=== PATIENT | female | born 1965 | race Hispanic/Latino ===

== ENCOUNTER 2020-12-31 12:07 | Inpatient (IN) | payer BC, SELFPAY ==
[2020-12-31 12:59] LABS: #Eosinphils 0.1 10x3/uL (0.0-0.5); #Monocytes 0.3 10x3/uL (0.0-1.1); #Neutrophils 3.1 10x3/uL (1.5-8.4); %Basophils 0.5 % (0.0-2.0); %Eosinophils 3.3 % (0.0-6.0); %Lymphocytes 15.7 % (18.0-47.0); %Monocytes 7.5 % (0.0-10.0); %Neutrophils 72.3 % (40.0-75.0); Hemoglobin 12.9 g/dL (12.0-15.5); Mean Corpuscular HGB CONC 33.8 g/dL (32.0-36.0); Mean Corpuscular Hemoglobin 29.7 pg (27.0-33.0); Mean Corpuscular Volume 87.8 fl (81.6-98.3); Mean Platelet Volume 10.9 fl (7.4-10.4); Platelet Count 201 10x3/uL (150-450); RBC Distribution Width 14.4 % (11.5-14.5); Red Blood Cell (RBC) Count 4.35 10x6/uL (3.90-5.03); White Blood Cell (WBC) Count 4.3 10x3/uL (3.5-10.5)
[2020-12-31 13:16] LABS: ALT (SGPT) 186 U/L (8-55); AST (SGOT) 104 U/L (5-34); Albumin 3.9 g/dL (3.5-5.0); Alkaline Phosphatase 139 U/L (40-110); Anion Gap 15 mmol/L (10-20); BUN (Urea Nitrogen) 20 mg/dL (9.8-20.1); Bilirubin, Total 0.5 mg/dL (0.2-1.2); Calc. Creatinine Clearance 0 mL/min (70-130); Calcium 9.1 mg/dL (7.8-10.44); Carbon Dioxide 23 mmol/L (22-29); Chloride 103 mmol/L (98-107); Globulin 3.1 g/dL (2.4-3.5); Glucose 486 mg/dL (70-105); Magnesium 1.9 mg/dL (1.6-2.6); Phosphorus 3.1 mg/dL (2.3-4.7); Potassium 3.9 mmol/L (3.5-5.1); Sodium 137 mmol/L (136-145)
[2020-12-31 13:19] LABS: Bilirubin Neg (Negative); Blood, Urine Negative (Negative); Clarity Clear (Clear); Glucose, Urine (Dipstick) >=1000 mg/dL (Negative); Ketone, Urine 50 mg/dL (Negative); Leukocyte 100 (Negative); Nitrite Negative (Negative); Protein, Urine (Dipstick) Negative (Neg-Trace); Specific Gravity, Urine 1.015 (1.002-1.036); Urobilinogen Normal mg/dL (Less than 2)
[2020-12-31 13:26] LABS: Actual Bicarbonate (HCO3v) 22 mEq/L (22-28); Base Excess -4.1 mEq/L (-2.0 to +3.0); Chloride (VBG) 99 mmol/L (98-106); Hemoglobin (Hb) 13.7 g/dL (11.7-16.0); Potassium (VBG) 3.67 mmol/L (3.70-5.30); Puncture Site Other Site; Sodium 136.8 mmol/L (133-146); pH (venous) 7.31 (7.32-7.43)
[2020-12-31 13:27] LABS: RBC/HPF 0-3 HPF (0-3); WBC/HPF 0-3 HPF (0-3)
[2020-12-31 13:28] LABS: Bacteria/HPF Rare-Few HPF (None Seen); Squamous Epithelial 0-3 HPF (0-3)
[2020-12-31 13:29] LABS: Yeast-Budding 1+ HPF (None Seen)
[2020-12-31] MEDS ORDERED: Insulin Regular 300 UNITS/3 ML VIAL ONE (14:00)
[2020-12-31] MEDS ORDERED: Dextrose 5% in Water 1,000 ML IV PRN (15:22)
[2020-12-31] MEDS ORDERED: Dextrose 50% Abboject 50 ML SYRINGE SLOW IVP PRN (15:22)
[2020-12-31] MEDS ORDERED: HumaLOG 300 UNITS/3 ML VIAL SC PRN (15:22)
[2020-12-31] MEDS ORDERED: Sodium Chloride 0.9% 1,000 ML IV SCH (15:30)
[2020-12-31] MEDS ORDERED: Acetaminophen 325 MG TAB PO PRN (15:31)
[2020-12-31] MEDS ORDERED: Ondansetron PF 4 MG/2 ML Vial IVP PRN (15:31)
[2020-12-31] MEDS ORDERED: Ondansetron ODT 4 MG TAB PO PRN (15:31)
[2020-12-31] MEDS ORDERED: Fluconazole 100 MG TAB PO SCH (16:30)
[2020-12-31 17:21] VITALS: BMI 35.8
[2020-12-31] MEDS ORDERED: Prevnar 13-Val Conj/PF 0.5 ML SYRINGE IM ONE (17:45)
[2020-12-31] MEDS: HumaLOG 300 UNITS/3 ML VIAL SC PRN (17:58)
[2020-12-31] MEDS: Famotidine 20 MG TAB PO SCH (20:52)
[2021-01-01 01:00] LABS: SARS-CoV-2 PCR by NAA Not Detected (NotDetected)
[2021-01-01 04:30] LABS: #Eosinphils 0.1 10x3/uL (0.0-0.5); #Monocytes 0.4 10x3/uL (0.0-1.1); #Neutrophils 2.5 10x3/uL (1.5-8.4); %Basophils 0.3 % (0.0-2.0); %Eosinophils 3.3 % (0.0-6.0); %Lymphocytes 22.9 % (18.0-47.0); %Monocytes 9.4 % (0.0-10.0); %Neutrophils 63.6 % (40.0-75.0); Hemoglobin 11.4 g/dL (12.0-15.5); Mean Corpuscular HGB CONC 33.6 g/dL (32.0-36.0); Mean Corpuscular Hemoglobin 29.1 pg (27.0-33.0); Mean Corpuscular Volume 86.5 fl (81.6-98.3); Mean Platelet Volume 10.5 fl (7.4-10.4); Platelet Count 171 10x3/uL (150-450); RBC Distribution Width 14.5 % (11.5-14.5); Red Blood Cell (RBC) Count 3.92 10x6/uL (3.90-5.03); White Blood Cell (WBC) Count 3.9 10x3/uL (3.5-10.5)
[2021-01-01 05:03] LABS: ALT (SGPT) 153 U/L (8-55); AST (SGOT) 87 U/L (5-34); Albumin 3.3 g/dL (3.5-5.0); Alkaline Phosphatase 108 U/L (40-110); Bilirubin, Direct 0.2 mg/dL (0.1-0.3); Bilirubin, Total 0.4 mg/dL (0.2-1.2); Protein, Total 5.9 g/dL (6.0-8.3)
[2021-01-01 05:04] LABS: Anion Gap 15 mmol/L (10-20); BUN (Urea Nitrogen) 19 mg/dL (9.8-20.1); Calc. Creatinine Clearance 122 mL/min (70-130); Calcium 8.9 mg/dL (7.8-10.44); Carbon Dioxide 21 mmol/L (22-29); Cardiac Risk 4.7 (Less than 4.5); Chloride 104 mmol/L (98-107); Cholesterol 136 mg/dl (< 200 Desired); Glucose 261 mg/dL (70-105); HDL Cholesterol 29 mg/dL (>60 Neg Risk); LDL Cholesterol, Calculated 62 mg/dL; Sodium 137 mmol/L (136-145); Triglycerides 223 mg/dL (Less than 150)
[2021-01-01] MEDS: HumaLOG 300 UNITS/3 ML VIAL SC PRN ×3 (06:14→18:28)
[2021-01-01] MEDS ORDERED: Potassium Chloride 20 MEQ TAB PO SCH (07:30)
[2021-01-01] MEDS ORDERED: Potassium Chloride 20 MEQ in Premix Bag 1 BAG IVPB SCH (07:45)
[2021-01-01] MEDS: Famotidine 20 MG TAB PO SCH ×2 (08:34→21:21)
[2021-01-01 11:05] LABS: Hemoglobin A1c 10.7 % (4.0-6.0)
[2021-01-01 11:41] LABS: HBCM Index 0.06 S/CO (0-0.79); HBSAg Index 0.21 S/CO (0-0.99); Hep A IgM AB Non-Reactive (NonReactive); Hep A IgM S/CO 0.06 S/CO (0-0.79); Hep B Surf Ag Non-Reactive S/CO (NonReactive); Hep C IgG Ab Non-Reactive (NonReactive); Hep C Index 0.03 S/CO (0-0.79); Hepatitis B Core IgM Abs Non-Reactive (NonReactive)
[2021-01-01] MEDS ORDERED: Lantus 1000 UNITS/10 ML VIAL SC SCH (21:00)
[2021-01-02] MEDS: HumaLOG 300 UNITS/3 ML VIAL SC PRN ×3 (01:26→12:40)
[2021-01-02] MEDS: Famotidine 20 MG TAB PO SCH (08:36)
[2021-01-02 12:27] VITALS: BP 119/78; TEMP 98.3
== END 2021-01-02 13:12 | disposition home or self-care (01) | DRG 638 ==
LOC: CSHERS 12:07 → CSHTELE 14:58 → UNDOADMOB 16:10 → INTOOBSV 16:10 → OBSVTOIN 01-01 14:43
PROVIDERS: ADMIT Internal Medicine; ATTEND Nurse Practitioner Family
DX: E11.65 Type 2 diabetes mellitus with hyperglycemia (principal); N39.0 Urinary tract infection, site not specified; C18.9 Malignant neoplasm of colon, unspecified; K52.9 Noninfective gastroenteritis and colitis, unspecified; I12.9 Hypertensive chronic kidney disease with stage 1 through stage 4 chronic kidney disease, or unspecified chronic kidney disease; E11.22 Type 2 diabetes mellitus with diabetic chronic kidney disease; N18.32 Chronic kidney disease, stage 3b; R74.01 Elevation of levels of liver transaminase levels; Z79.4 Long term (current) use of insulin; E87.6 Hypokalemia; Z20.822 Contact with and (suspected) exposure to COVID-19
CPT/HCPCS: 36415; 36416; 71045; 74177; 76705; 80048; 80053; 80061; 80074; 80076; 81003; 81015; 82010; 82805; 83036; 83735; 84100; 85025; 87086; 87635; 96374; G0378; J1815; J3480; U0003; U0005